=== PATIENT | male | born 1990 | race Caucasian/White ===

== ENCOUNTER 2025-04-12 18:32 | Emergency (ER) | payer SELFPAY ==
[2025-04-12 19:12] LABS: BASOPHILS ABSOLUTE AUTO 0.04 K/uL (0.00-0.20); BASOPHILS PERCENT AUTO 0.4 % (0.0-1.0); EOSINOPHILS ABSOLUTE AUTO 0.10 K/uL (0.00-0.45); EOSINOPHILS PERCENT AUTO 0.9 % (0.0-6.0); IMMATURE GRAN ABSOLUTE AUTO 0.05 K/uL (0.00-0.05); IMMATURE GRAN PERCENT AUTO 0.5 % (0.0-0.4); LYMPHOCYTES ABSOLUTE AUTO 1.67 K/uL (1.00-4.80); LYMPHOCYTES PERCENT AUTO 15.8 % (24.0-44.0); MEAN PLATELET VOLUME 8.7 fL (9.4-12.4); MONOCYTES ABSOLUTE AUTO 1.02 K/uL (0.00-0.80); MONOCYTES PERCENT AUTO 9.7 % (0.0-8.0); NEUTROPHILS ABSOLUTE AUTO 7.68 K/uL (1.80-7.70); NEUTROPHILS PERCENT AUTO 72.7 % (41.0-71.0); NRBC ABSOLUTE 0.00 K/uL (0.00-0.02); NRBC PERCENT 0.0 /100WBC (0.0-0.2); PLATELET COUNT,PLT 306 K/uL (150-400); RED BLOOD CELL COUNT 5.28 M/uL (4.52-5.90); WHITE BLOOD CELL COUNT,WBC 10.56 K/uL (3.9-11.3)
[2025-04-12 19:18] LABS: APPEARANCE,URINE CLEAR; GLUCOSE,URINE NEGATIVE (NEGATIVE); OCCULT BLOOD,URINE NEGATIVE (NEGATIVE)
[2025-04-12] MEDS: Iopamidol 755 Mg/ML 100 ML Bottle IVPUSH ONE (19:33)
[2025-04-12 19:36] LABS: A/G RATIO 1.4 (0.9-1.6); ALANINE AMINOTRANSFERASE,ALT 39 IU/L (14-63); ASPARTATE AMNIOTRANSFERASE,AST 26 IU/L (15-37); BILIRUBIN TOTAL 1.2 mg/dL (0.2-1.0); BLOOD UREA NITROGEN,BUN 13 mg/dL (7.0-18.0); CARBON DIOXIDE,CO2 23.7 mmol/L (21.0-32.0); CHLORIDE,CL 97 mmol/L (98-107); CREATININE 1.2 mg/dL (0.8-1.3); GLUCOSE RANDOM 87 mg/dL (74-106); POTASSIUM,K 3.5 mmol/L (3.5-5.1); PROTEIN TOTAL,TP 8.1 g/dL (6.4-8.2); SODIUM,NA 135 mmol/L (136-148)
[2025-04-12 19:39] LABS: ESTIMATED GFR 81 mL/min (>60)
== END 2025-04-12 20:51 | disposition home or self-care (01) ==
LOC: MW.ED 18:32
DX: K62.89 Other specified diseases of anus and rectum (principal); Z87.891 Personal history of nicotine dependence; Z88.0 Allergy status to penicillin; Z88.1 Allergy status to other antibiotic agents; Z75.3 Unavailability and inaccessibility of health-care facilities
CPT/HCPCS: 36415; 74177; 80053; 81003; 83690; 85025; 96360; 99285; J7030; Q9967; 99283